=== PATIENT | female | born 1960 | race American Indian/Alaskan Native ===

== ENCOUNTER 2020-01-17 23:26 | Emergency (ER) | payer MEDICARE ==
[2020-01-18 04:10] VITALS: BP 157/88
[2020-01-18] MEDS ORDERED: KETOROLAC 60 MG/2 ML INJ IM ONE (05:41)
--- NOTE | 2020-01-18 05:46 | Emergency Department Report ---
ED Lower Extremity HPI - General Chief Complaint: Extremity Problem,Nontraumatic Stated Complaint: L HIP/LEG/PELVIC PAIN Time Seen by Provider: 01/18/20 04:02 Source: patient Mode of arrival: Wheelchair Limitations: No Limitations - History of Present Illness Initial Comments: This is a 59-year-old -[place] female who presents to the emergency room with left hip pain for 2 weeks. Patient states she went to her primary care doctor last week Dr. Mejia and prescribed steroids, Vicodin, and gabapentin. She was referred to pain management but unsuccessful with obtaining an appointment states she was diagnosed with lumbar radiculopathy with sciatica. States x-rays are pending. Patient reports having similar symptoms years ago but never lasted this long. Reports pain is burning intensity as sharp or radiating down left leg with movement. MD Complaint: leg injury (left leg pain) Onset/Timin -: week(s) Injury: Hip: Left, Leg: Left Type of Injury: unknown Place: home Severity: severe Severity scale (0 -10): 10 Improves With: immobilization Worsens With: movement Associated Symptoms: able to partially bear weight - Related Data Allergies Allergy/AdvReac Type Severity Reaction Status Date / Time No Known Allergies Allergy Unverified 01/18/20 05:41 ED Review of Systems ROS: Stated complaint: L HIP/LEG/PELVIC PAIN Other details as noted in HPI Constitutional: denies: chills, fever Respiratory: denies: cough, shortness of breath, wheezing Cardiovascular: denies: chest pain, palpitations Gastrointestinal: denies: abdominal pain, nausea, diarrhea Musculoskeletal: arthralgia (Left leg). denies: back pain, joint swelling Skin: denies: rash, lesions Neurological: denies: headache, weakness, paresthesias Psychiatric: denies: anxiety, depression ED Past Medical Hx - Past Medical History Previous Medical History?: Yes Hx Hypertension: Yes Additional medical history: breast CA - Surgical History Past Surgical History?: Yes Hx Breast Surgery: Yes (r partial masectomy) - Social History Smoking Status: Never Smoker Substance Use Type: Alcohol ED Physical Exam - General Limitations: No Limitations General appearance: alert, in no apparent distress - Respiratory Respiratory exam: Present: normal lung sounds bilaterally. Absent: respiratory distress - Cardiovascular Cardiovascular Exam: Present: regular rate, normal rhythm. Absent: systolic murmur, diastolic murmur, rubs, gallop - GI/Abdominal GI/Abdominal exam: Present: soft, normal bowel sounds. Absent: distended, tenderness, guarding, rebound, rigid - Extremities Exam Extremities exam: Present: normal inspection - Expanded Lower Extremity Exam Left Hip exam: Present: full ROM, tenderness. Absent: swelling, abrasion, laceration, ecchymosis, deformity, crepidus, dislocation, erythema, external rotation, internal rotation, shortening, pelvic stability Upper Leg exam: Present: normal inspection, full ROM Knee exam: Present: normal inspection, full ROM Lower Leg exam: Present: normal inspection, full ROM Ankle exam: Present: normal inspection, full ROM Foot/Toe exam: Present: normal inspection, full ROM Neuro vascular tendon exam: Present: no vascular compromise Gait: Positive: observed and limited by pain - Back Exam Back exam: Present: full ROM, paraspinal tenderness (Left iliac joint TTP, positive left straight leg test). Absent: muscle spasm, rash noted - Neurological Exam Neurological exam: Present: alert, oriented X3 - Psychiatric Psychiatric exam: Present: normal affect, normal mood - Skin Skin exam: Present: warm, dry, intact, normal color. Absent: rash ED Course Vital Signs 01/17/20 01/18/20 23:33 06:21 Temperature 98.3 F Pulse Rate 102 H 86 Respiratory 20 17 Rate Blood Pressure 157/88 O2 Sat by Pulse 93 97 Oximetry ED Lower Extremity MDM - Medical Decision Making This is a 59-year-old female who presents to the emergency room with left leg pain for 2 weeks. Vitals are stable and patient in no acute distress. Tenderness on palpation of left iliac crest and positive straight leg test on left leg. Symptoms are susceptible of acute sciatica. Patient currently taking steroids, gabapentin and Vicodin prescribed by PCP Dr. Mejia. Instructed to continue current therapy. Referral to pain management and orthopedic surgeon for continued care. Patient discharged home stable with strict return instructions. Follow-up with PCP. Critical care attestation.: If time is entered above; I have spent that time in minutes in the direct care of this critically ill patient, excluding procedure time. ED Disposition Clinical Impression: Leg pain, left, Lumbar radiculopathy, Sciatic leg pain Disposition: TO HOME OR SELFCARE Is pt being admited?: No Condition: Stable Instructions: Sciatica (ED), Lumbar Radiculopathy (ED) Additional Instructions: Follow-up with a orthopedic surgeon and or pain management. Continue medications prescribed by your primary care Dr. Hernan Aguilar. Follow-up with her in the next 2 to 3 days. Return to the emergency room if worsening symptoms. Referrals: RONIT HOLDEN MD [Primary Care Provider] - 3-5 Days [facility] [Provider Group] - 3-5 Days ROBYN JEROME MD [Staff Physician] - 3-5 Days Forms: Accompanied Note Time of Disposition: 05:53
== END 2020-01-18 06:21 | disposition home or self-care (01) ==
LOC: ED 23:26
DX: M54.16 Radiculopathy, lumbar region (principal); M54.32 Sciatica, left side
CPT/HCPCS: 96372; 99282; J1885